=== PATIENT | female | born 1960 | race American Indian/Alaskan Native ===

== ENCOUNTER 2017-09-20 22:42 | Inpatient (IN) | payer MEDICARE ==
[2017-09-20 22:42] VITALS: BMI 22.4
--- NOTE | 2017-09-21 00:13 | C.PDOC ---
History Of Present Illness 57 y/o female presents to the emergency department requesting detox from opiates. Denies any suicidal or homicidal ideation. Offers no physical complaints. Patient receives dialysis on . Last dialysis was yesterday. pt states no cp, sob. pt does not make urine baseline. pt unknown cd4 viral load , non complaint hiv meds. Time Seen by Provider: 09/20/17 22:56 Chief Complaint (Nursing): Substance Abuse History Per: Patient History/Exam Limitations: no limitations Onset/Duration Of Symptoms: Hrs Current Symptoms Are (Timing): Still Present Past Medical History Reviewed: Historical Data, Nursing Documentation, Vital Signs Vital Signs: Last Vital Signs Temp 98.8 F 09/23/17 06:38 Pulse 70 09/23/17 06:38 Resp 18 09/23/17 06:38 BP 106/67 09/23/17 06:38 Pulse Ox 99 09/23/17 06:38 - Medical History PMH: Anemia, Anxiety, CAD, Depression, Fractures (r ft fx), Gall Bladder Disease , HIV, HTN, Hypercholesterolemia, Hyperlipidemia, Hyperthyroidism ( Hyperparathyroidism, pt not sure), Hypothyroidism, Migraine, Pancreatitis, Pneumonia, End Stage Renal Disease, Chronic Kidney Disease, Sexually Transmitted Disease (HIV/AIDS) Denies: Alzheimer's Disease, Arthritis, Asthma, Bronchitis, Cardia Arrhythmia , CHF, COPD, Dementia, Emphysema, Kidney Stones, Mitral Valve Prolapse, Parkinson's Disease, Peripheral Edema, Seizures, Sickle Cell Disease, Sleep Apnea, TIA Surgical History: Appendectomy, Cholecystectomy, Coronary Stent Denies: Pacemaker - [facility] Procedures (09/01/17) APPLICATION OF SPLINT (01/09/14) CONTRAST ARTERIOGRAM NEC (12/13/13) CORONAR ARTERIOGR-2 CATH (09/05/13) CORONARY ARTERY STENT INSERTION [id number] (09/05/13) DILATION OF 1 COR ART WITH DRUG-ELUT INTRALUM, PERC APPROACH (08/21/15) DILATION OF CORONARY ARTERY, ONE ARTERY, PERC APPROACH (04/21/16) ESOPHAGOGASTRODUODENOSCOPY [EGD] W/CLOSED BIOPSY (06/20/13) EXCISION OF ESOPHAGUS, ENDO, DIAGN (08/21/15) EXCISION OF MIDDLE ESOPHAGUS, ENDO, DIAGN (09/01/17) GAIT TRAINING/AMBULAT TREATMENT USING ASSIST EQUIPMENT (07/22/16) GAIT TRAINING/FUNCTIONAL AMBULATION TREATMENT (06/28/16) HEMODIALYSIS (02/28/15) HOME MANAGEMENT TREATMENT (06/28/16) HOME MANAGEMENT TREATMENT USING ASSIST EQUIPMENT (07/22/16) INFLUENZA VACCINATION (04/28/14) INJECT/INFUSE NEC (04/10/14) INSERT INFUSION DEV IN R INT JUGULAR VEIN, PERC (07/16/16) INSERTION OF TWO VASCULAR STENTS (09/05/13) INTRODUCE OF OTH THERAP SUBST INTO RESP TRACT, VIA OPENING (04/29/16) INTRODUCE OF OXAZOLIDINONES INTO PERIPH VEIN, PERC APPROACH (04/29/16) LEFT HEART CARDIAC CATH (09/05/13) LT HEART ANGIOCARDIOGRAM (09/05/13) MEASURE OF CARDIAC SAMPL & PRESSURE, L HEART, PERC APPROACH (04/21/16) NEBULIZER THERAPY (02/28/15) OTHER ENDOSCOPY OF SM INTEST (11/12/11) OTHER SKIN & SUBQ I D (04/04/13) PACKED CELL TRANSFUSION (05/12/13) PERCUTAN NEEDLE BIOPSY OF KIDNEY (01/25/13) PERCUTANEOUS TRANSLUMINAL CORONARY ANGIOPLASTY [PTCA] (09/05/13) PERFORMANCE OF URINARY FILTRATION, MULTIPLE (07/22/16) PLAIN RADIOGRAPHY OF LEFT HEART USING LOW OSMOLAR CONTRAST (04/21/16) PLAIN RADIOGRAPHY OF MULT COR ART USING L OSM CONTRAST (04/21/16) PROCEDURE ON TWO VESSELS (09/05/13) TRANSFER TRAINING TREATMENT USING ASSIST EQUIPMENT (07/22/16) TRANSFUSE NONAUT RED BLOOD CELLS IN PERIPH VEIN, PERC (09/01/17) ULTRASONOGRAPHY OF RIGHT JUGULAR VEINS, GUIDANCE (07/16/16) VACCINATION NEC (11/12/11) VENOUS PUNCTURE NEC (11/10/11) Family History: States: No Known Family Hx - Social History Hx Tobacco Use: No Hx Alcohol Use: No Hx Substance Use: Yes - Immunization History Hx Tetanus Toxoid Vaccination: No Hx Influenza Vaccination: Yes Hx Pneumococcal Vaccination: No Review Of Systems Respiratory: Negative for: Shortness of Breath Gastrointestinal: Negative for: Nausea, Vomiting Psych: Positive for: Other (substance abuse). Negative for: Suicidal ideation Physical Exam - Physical Exam Appears: Non-toxic, No Acute Distress Skin: Normal Color, Warm, Dry Head: Atraumatic, Normacephalic Eye(s): bilateral: Normal Inspection, PERRL, EOMI Nose: Normal Oral Mucosa: Moist Chest: Symmetrical Cardiovascular: Rhythm Regular, No Murmur Respiratory: Normal Breath Sounds, No Accessory Muscle Use Gastrointestinal/Abdominal: Soft, No Tenderness, No Distention Extremity: Bilateral: Atraumatic, Normal Color And Temperature, Normal ROM Neurological/Psych: Oriented x3, Normal Speech Gait: Steady ED Course And Treatment - Laboratory Results Result Diagrams: 09/21/17 01:20 09/21/17 01:20 O2 Sat by Pulse Oximetry: 97 (RA) Pulse Ox Interpretation: Normal Medical Decision Making Medical Decision Making: Time: 23:04 Initial Plan: Alcohol serum Urine drug screen CMP CBC Urinalysis Will discuss w/ crisis Labs reviewed. H/H is at pts baseline. medically clear/ no cardiopulm complaints. FINDINGS: Lungs: Mild parabronchial cuffing, which can be seen with bronchitis, reactive airway disease or viral pneumonitis versus mild failure. Trace haziness of the lung bases likely due to overlying soft tissues. Pleural space: Unremarkable. No pneumothorax. Heart: Mild enlargement of cardiac silhouette. Mediastinum: Unremarkable. Bones/joints: Unremarkable. IMPRESSION: Mild parabronchial cuffing, which can be seen with bronchitis, reactive airway disease or viral pneumonitis versus mild failure. pt does not make urine, unable to obtain drug screen ua. case discussed with cordell. pt will need arrangements for hd, and will need nephrology/im consult for hiv medication management. no active infection. pt well appearing, lungs cta. abd soft, observed in nad, on phone. Disposition - Disposition Disposition: HOSPITALIZED Disposition Time: 05:40 Condition: STABLE - Clinical Impression Clinical Impression: Opiate addiction - Scribe Statement The provider has reviewed the documentation as recorded by the Scribe (Taisha Evangelista) Provider Attestation: All medical record entries made by the Scribe were at my direction and personally dictated by me. I have reviewed the chart and agree that the record accurately reflects my personal performance of the history, physical exam, medical decision making, and the department course for this patient. I have also personally directed, reviewed, and agree with the discharge instructions and disposition. Decision To Admit - Pt Status Changed To: Hospital Disposition Of: Inpatient - Admit Certification Admit to Inpatient:: After my assessment, the patient will require hospitalization for at least two midnights. This is because of the severity of symptoms shown, intensity of services needed, and/or the medical risk in this patient being treated as an outpatient. - InPatient: Physician Admission Certification: I certify that this patient requires 2 or more midnights of care for the following reason:: needs detox - . Bed Request Type: Detox Admitting Physician: Dia Livingston Patient Diagnosis: Opiate addiction
[2017-09-21 01:24] LABS: BASO % 0.8 % (0.0-2.0); EOS % 0.7 % (0.0-4.0); HEMOGLOBIN 8.6 g/dL (11.0-16.0); LYMPH # 1.3 K/uL (1.0-4.3); LYMPH % 22.7 % (20.0-40.0); MEAN CELL VOLUME 102.8 fL (81.0-99.0); MEAN CORPUSCULAR HEMOGLOBIN 34.8 pg (27.0-31.0); MEAN CORPUSCULAR HGB CONC 33.8 g/dL (33.0-37.0); MEAN PLATELET VOLUME 9.1 fL (7.2-11.7); MONO # 0.7 K/uL (0.0-0.8); MONO % 11.9 % (0.0-10.0); NEUT # 3.7 K/uL (1.8-7.0); NEUT % 63.9 % (50.0-75.0); NRBC % 0.6 % (0.0-2.0); RBC 2.46 Mil/uL (3.80-5.20); WHITE BLOOD COUNT 5.8 K/uL (4.8-10.8)
[2017-09-21 01:39] LABS: ALB/GLOB RATIO 0.8 (1.0-2.1); ALBUMIN 4.2 g/dL (3.5-5.0); ALT/SGPT 33 U/L (9-52); AST/SGOT 40 U/L (14-36); BLOOD UREA NITROGEN 33 mg/dL (7-17); CALCIUM 8.8 mg/dl (8.6-10.4); GFR AFRICAN-AMERICAN 5; GFR NON-AFRICAN AMERICAN 4
--- NOTE | 2017-09-21 04:54 | RAD ---
EXAM: XR Chest, 2 Views CLINICAL HISTORY: 57 years old, female; Signs and symptoms; Cough; Symptoms not specified; Additional info: Psych TECHNIQUE: Frontal and lateral views of the chest. COMPARISON: No relevant prior studies available. FINDINGS: Lungs: Mild parabronchial cuffing, which can be seen with bronchitis, reactive airway disease or viral pneumonitis versus mild failure. Trace haziness of the lung bases likely due to overlying soft tissues. Pleural space: Unremarkable. No pneumothorax. Heart: Mild enlargement of cardiac silhouette. Mediastinum: Unremarkable. Bones/joints: Unremarkable. IMPRESSION: Mild parabronchial cuffing, which can be seen with bronchitis, reactive airway disease or viral pneumonitis versus mild failure.
--- NOTE | 2017-09-21 08:17 | PCM.BM ---
<Onelia Aguilar - Last Filed: 09/21/17 08:15> Treatment Plan Problems - Problems identified on initial assessmt Potential for opioid withdrawal Date Initiated: 09/21/17 Assessment reference: NA Status: Active Treatment assets and liabiliti Patient Assests: adapts well, cooperative, insightful Patient Liabilities: live alone, substance abuse, medical problems - Milieu Protocol Maintain good personal hygiene: daily Encourage regular showers, daily Remind patient to perform daily oral care, daily Assist patient to perform ADL's, every shift Encourage regular showers, every shift Remind patient to perform daily oral care, every shift Assist patient to perform ADL's Maintain personal safety: daily Educate patient to report safety concerns to staff, daily Monitor environment for contraband/sharps, every shift Educate patient to report safety concerns to staff, every shift Monitor environment for contraband/sharps Medication safety: Monitor for expected outcome, potential side effects: daily, every shift, Assess barriers to learning: daily, every shift, Assess readiness for medication education: daily, every shift <Vaishnavi Hutchinson - Last Filed: 09/21/17 16:03> Family Contact Family involvement: Patient does not wish Family/SO involvement - Goals for Treatment Patient goals for treatment: Complete detox and transtion to o/p at [facility]. Discharge/Continuing Care - Education Needs Education Needs: Patient Medication, Patient Diagnosis/Disease Process, Patient Coping Skills, Patient Anger Management skills, Patient Placement options, Patient Community resources - Discharge Discharge Criteria: No longer exhibiting s/s of withdrawal, Reduction of target symptoms Discharge to:: Home - Treatment Team Participation Patient/Family/SO Statement: 09/21/17 16:04 "I wanna go to outpatient near my house..." Discussed with Family/SO: No Was Patient/Family/SO present at Treatment Team Meeting: Yes <Marge Forman - Last Filed: 09/22/17 22:17> - Diagnosis (1) Opiate addiction Status: Acute Interventions: 09/22/17 22:17 * Assess 7x/week regarding severity of withdrawal * Educate regarding risks, benefits, side effects and alternatives of medications * Use Motivational Interviewing for abstinence * Use CBT for relapse prevention * Medication management for withdrawal symptoms * Encourage medication assisted treatment *
[2017-09-21] MEDS ORDERED: Levothyroxine 25 MCG TAB PO SCH (10:45)
[2017-09-21] MEDS: Multiple Vitamins Tab PO SCH (11:35)
--- NOTE | 2017-09-21 13:51 | CP.PCM.CON ---
History of Present Illness - History of Present Illness History of Present Illness: 57 y/o female presents to the emergency department requesting detox from opiates. Denies any suicidal or homicidal ideation. Offers no physical complaints. Patient receives dialysis on . Last dialysis was yesterday. pt states no cp, sob. pt does not make urine baseline. pt unknown cd4 viral load , non complaint hiv meds. PMH: ESRD HIV POSITIVE HTN CAD ISCHEMIC CARDIOMYOPATHY PSH: AV [facility] CATH INSERTION/REMOVAL Review of Systems - Review of Systems All systems: reviewed and no additional remarkable complaints except - Constitutional Constitutional: Lethargy, Weakness - EENT Eyes: absent: As Per HPI, Blind Spots, Blurred Vision, Change in Vision, Decreased Night Vision, Diplopia, Discharge, Dry Eye, Exophthalmos, Floaters, Irritation, Itchy Eyes, Loss of Peripheral Vision, Pain, Photophobia, Requires Corrective Lenses, Sees Flashes, Spots in Vision, Tunnel Vision, Other Visual Disturbances, Loss of Vision, Other Ears: absent: As Per HPI, Decreased Hearing, Ear Discharge, Ear Pain, Tinnitus, Abnormal Hearing, Disequilibrium, Dizziness, Other Nose/Mouth/Throat: absent: As Per HPI, Epistaxis, Nasal Congestion, Nasal Discharge, Nasal Obstruction, Nasal Trauma, Nose Pain, Post Nasal Drip, Sinus Pain, Sinus Pressure, Bleeding Gums, Change in Voice, Dental Pain, Dry Mouth, Dysphagia, Halitosis, Hoarsness, Lip Swelling, Mouth Lesions, Mouth Pain, Odynophagia, Sore Throat, Throat Swelling, Tongue Swelling, Facial Pain, Neck Pain, Neck Mass, Other - Cardiovascular Cardiovascular: Dyspnea on Exertion - Respiratory Respiratory: absent: As Per HPI, Cough, Dyspnea, Hemoptysis, Dyspnea on Exertion , Wheezing, Snoring, Stridor, Pain on Inspiration, Chest Congestion, Excessive Mucous Production, Change in Mucous Color, Pain with Coughing, Other - Gastrointestinal Gastrointestinal: absent: As Per HPI, Abdominal Pain, Belching, Bloating, Change in Bowel Habits, Change in Stool Character, Coffee Ground Emesis, Constipation, Cramping, Diarrhea, Dyspepsia, Dysphagia, Early Satiety, Excessive Flatus, Fecal Incontinence, Heartburn, Hematemesis, Hematochezia, Loose Stools, Melena, Nausea, Odynophagia, Temesmus, Vomiting, Other - Genitourinary Genitourinary: As Per HPI - Musculoskeletal Musculoskeletal: Muscle Cramps, Myalgias - Integumentary Integumentary: absent: As Per HPI, Acne, Alopecia, Bleeding Lesions, Change in Hair, Change in Nails, Change in Pigmentation, Changing Lesions, Dry Skin, Erythema, Furuncle, Hirsutism, Lesions, New Lesions, Non-Healing Lesions, Photosensitivity, Pruritus, Rash, Skin Pain, Skin Ulcer, Sores, Striae, Swelling , Unusual Bruising, Wounds, Jaundice, Other Past Patient History - Infectious Disease Hx of Infectious Diseases: None - Tetanus Immunizations Tetanus Immunization: Unknown - Past Medical History & Family History Past Medical History?: Yes - Past Social History Smoking Status: Former Smoker - CARDIAC Hx Cardia Arrhythmia: No Hx Congestive Heart Failure: No Hx Hypercholesterolemia: Yes Hx Hypertension: Yes Hx Mitral Valve Prolapse: No Hx Pacemaker: No Hx Peripheral Edema: No Hx Peripheral Vascular Disease: No - PULMONARY Hx Asthma: No Hx Bronchitis: No Hx Chronic Obstructive Pulmonary Disease (COPD): No Hx Emphysema: No Hx Pneumonia: Yes Hx Sleep Apnea: No - NEUROLOGICAL Hx Alzheimer's Disease: No Hx Dementia: No Hx Migraine: Yes Hx Parkinson's Disease: No Hx Seizures: No Hx Transient Ischemic Attacks (TIA): No - HEENT Hx HEENT Problems: No - RENAL Hx Chronic Kidney Disease: Yes Hx Kidney Stones: No - ENDOCRINE/METABOLIC Hx Hyperthyroidism: Yes (Hyperparathyroidism, pt not sure) Hx Hypothyroidism: Yes - HEMATOLOGICAL/ONCOLOGICAL Hx Anemia: Yes Hx Human Immunodeficiency Virus (HIV): Yes Hx Sickle Cell Disease: No - INTEGUMENTARY Hx Dermatological Problems: Yes (generalized body itch on and off) - MUSCULOSKELETAL/RHEUMATOLOGICAL Hx Arthritis: No Hx Falls: No Hx Fractures: Yes (r ft fx) - GASTROINTESTINAL Hx Gall Bladder Disease: Yes Hx Pancreatitis: Yes - GENITOURINARY/GYNECOLOGICAL Hx Sexually Transmitted Disorders: Yes (HIV/AIDS) - PSYCHIATRIC Hx Anxiety: Yes Hx Depression: Yes Hx Substance Use: Yes - SURGICAL HISTORY Hx Appendectomy: Yes Hx Cholecystectomy: Yes Hx Coronary Stent: Yes - ANESTHESIA Hx Anesthesia: Yes Hx Anesthesia Reactions: No Hx Malignant Hyperthermia: No Meds Allergies/Adverse Reactions: Allergies Allergy/AdvReac Type Severity Reaction Status Date / Time AYANA Inhibitors Allergy SWELLING Verified 09/20/17 22:45 - Medications Medications: Current Medications Aspirin (Ecotrin) 81 mg PO DAILY RE[facility] Last Admin: 09/21/17 11:35 Dose: 81 mg [facility] Clopidogrel Bisulfate (Plavix) 75 mg PO DAILY [facility] Last Admin: 09/21/17 11:35 Dose: 75 mg Famotidine (Pepcid) 20 mg PO BID [facility] Hydroxyzine HCl (Atarax) 25 mg PO Q6H PRN PRN Reason: Anxiety Levothyroxine Sodium (Synthroid) 25 mcg PO DAILY [facility] Last Admin: 09/21/17 11:34 Dose: 25 mcg Metoclopramide HCl (Reglan) 10 mg PO DAILY PRN PRN Reason: Nausea/Vomiting Metoprolol Tartrate (Lopressor) 50 mg PO BID [facility] Last Admin: 09/21/17 11:35 Dose: 50 mg Multivitamins (Hexavitamin) 1 tab PO DAILY [facility] Last Admin: 09/21/17 11:35 Dose: 1 tab Trazodone HCl (Desyrel) 50 mg PO [facility] Trimethoprim/Sulfamethoxazole (Bactrim Ds Tab) tab [facility] PRN Reason: Protocol Physical Exam - Constitutional Appears: Non-toxic, No Acute Distress - Head Exam Head Exam: ATRAUMATIC, NORMAL INSPECTION - Eye Exam Eye Exam: EOMI, Normal appearance - Neck Exam Neck exam: Positive for: Normal Inspection. Negative for: Tenderness - Respiratory Exam Respiratory Exam: Clear to Auscultation Bilateral, NORMAL BREATHING PATTERN - Cardiovascular Exam Cardiovascular Exam: REGULAR RHYTHM, +S1 - GI/Abdominal Exam GI & Abdominal Exam: Soft. absent: Tenderness - Extremities Exam Extremities exam: Positive for: normal inspection, tenderness - Neurological Exam Neurological exam: Alert, CN II-XII Intact - Skin Skin Exam: Dry, Warm Results - Vital Signs Recent Vital Signs: Last Vital Signs Temp 98.5 F 09/21/17 12:38 Pulse 80 09/21/17 12:38 Resp 18 09/21/17 12:38 BP 116/73 09/21/17 12:38 Pulse Ox 96 09/21/17 12:38 - Labs Result Diagrams: 09/21/17 01:20 09/21/17 01:20 Labs: Laboratory Results - last 24 hr 09/21/17 09/21/17 01:20 01:20 WBC 5.8 RBC 2.46 L Hgb 8.6 L Hct 25.3 L MCV 102.8 H MCH 34.8 H MCHC 33.8 RDW 16.0 H Plt Count 179 MPV 9.1 Neut % (Auto) 63.9 Lymph % (Auto) 22.7 [place] % (Auto) 11.9 H Eos % (Auto) 0.7 Baso % (Auto) 0.8 Neut # (Auto) 3.7 Lymph # (Auto) 1.3 [place] # (Auto) 0.7 Eos # (Auto) 0.0 Baso # (Auto) 0.0 Sodium 142 Potassium 4.1 Chloride 95 L Carbon Dioxide 28 Anion Gap 23 H BUN 33 H Creatinine 9.2 H* D Est GFR ( Amer) 5 Est GFR (Non-Af Amer) 4 Random Glucose 137 H Calcium 8.8 Total Bilirubin 0.7 AST 40 H ALT 33 Alkaline Phosphatase 84 Total Protein 9.2 H Albumin 4.2 Globulin 5.0 H Albumin/Globulin Ratio 0.8 L Alcohol, Quantitative < 10 Assessment & Plan (1) ESRD (end stage renal disease) Status: Acute (2) CAD (coronary artery disease) Status: Acute (3) Opiate addiction Status: Acute - Assessment and Plan (Free Text) Plan: DETOX PLANS DIALYSIS TTS
[2017-09-21] MEDS ORDERED: Tmp-Smz 800 mg-160 mg DS Tab PO ONE (15:00)
--- NOTE | 2017-09-22 00:57 | PCM.PSYCH ---
Initial Psychiatric Evaluation - Initial Psychiatric Evaluation Type of Admission: Voluntary Legal Status: Capacity Chief Complaint (in patient's own words): I need detox Patient's Reaction to Hospitalization: Voluntary History of Present Illness and Precipitating Events: Patient is a 57 year old female with history of ESRD on hemodialysis every thursday, , and thursday, lives with her grandchildren and son, hx of percocet abuse (8/day), last use was thursday or thursday, patient been using heroin for years. Started using marijuana 4 months ago. Patient is a nonsmoker. She admits to feeling agitated at this time. Also experiencing some nausea. Denies any thoughts of suicide or homicide. Denies any hallucination. Past psych hx: Denies Medical hx: ESRD, HTN Family psych hx: Unknown Current Medications: Active Medications Generic Name Dose Route Start Last Admin Trade Name Freq PRN Reason Stop Dose Admin Acetaminophen 325 mg 09/21/17 14:45 09/21/17 15:03 Tylenol 325mg Tab PO 325 mg Q4 PRN Administration moderate pain 4-7 Aspirin 81 mg 09/21/17 10:37 09/21/17 11:35 Ecotrin PO 81 mg DAILY REILLY Administration Calcium Acetate 667 mg 09/21/17 17:00 09/21/17 19:33 Phoslo PO Not Given BIDCC [facility] Clopidogrel Bisulfate 75 mg 09/21/17 11:00 09/21/17 11:35 Plavix PO 75 mg DAILY RE[facility] Administration Famotidine 20 mg 09/21/17 18:00 09/21/17 19:33 Pepcid PO Not Given BID [facility] Hydroxyzine HCl 25 mg 09/21/17 10:44 09/21/17 21:37 Atarax PO 25 mg Q6H PRN Administration Anxiety Levothyroxine Sodium 25 mcg 09/22/17 10:00 Synthroid PO DAILY [facility] Methadone HCl 5 mg 09/21/17 23:10 Methadone PO DAILY PRN breakthrough opioid wdw sxs Methadone HCl 0 mg 09/22/17 10:00 Methadone PO 09/26/17 09:59 Q24H RE[facility] Taper Metoclopramide HCl 10 mg 09/21/17 10:49 09/21/17 16:33 Reglan PO 10 mg DAILY PRN Administration Nausea/Vomiting Metoprolol Tartrate 50 mg 09/21/17 10:30 09/21/17 19:33 Lopressor PO Not Given BID [facility] Multivitamins 1 tab 09/21/17 11:00 09/21/17 11:35 Hexavitamin PO 1 tab DAILY [facility] Administration Trazodone HCl 50 mg 09/21/17 22:00 09/21/17 21:37 Desyrel PO 50 mg HS [facility] Administration Trimethoprim/Sulfamethoxazole 400 tab 09/22/17 18:00 Bactrim Ss Tab PO TTS@1800 [facility] Protocol Past Psychiatric History - Past Psychiatric History Previous Treatment History: None Pertinent Medical Hx (Current Medical&Sleep Prob, Allergies): Allergies Allergy/AdvReac Type Severity Reaction Status Date / Time AYANA Inhibitors Allergy SWELLING Verified 09/20/17 22:45 Aspirin [Ecotrin] 81 mg PO DAILY #30 tabec 09/04/17 Atovaquone [Mepron] 750 mg PO BID #60 packet 09/04/17 Calcium Acetate [Phoslo] 667 mg PO TID #60 capsule 09/04/17 Clopidogrel [Plavix] 75 mg PO DAILY #90 tab 09/04/17 Clotrimazole [Mycelex Ines] 10 mg MT 5XD #60 theresa 09/04/17 Darunavir [Prezista] 800 mg PO DAILY #90 tab 09/04/17 Dolutegravir Sodium [Tivicay] 50 mg PO DAILY #30 tab 09/04/17 Folic Acid 1 mg PO DAILY #90 tab 09/04/17 Levothyroxine [Synthroid] 25 mcg PO DAILY #90 tab 09/04/17 Metoclopramide [Reglan] 10 mg PO DAILY PRN #30 tab 09/04/17 Metoprolol Tartrate [Lopressor] 50 mg PO BID #60 tab 09/04/17 Pantoprazole [Protonix EC Tab] 40 mg PO BID #30 ect 09/04/17 Rosuvastatin Calcium [Crestor] 20 mg PO HS #30 tab 09/04/17 Calcium Acetate 667 mg PO DAILY 09/21/17 Levocetirizine Dihydrochloride [Xyzal] 5 mg PO PRN PRN 09/21/17 [id number] Ethyl Esters 1 GM [Lovaza] 1 gm PO BID 09/21/17 Sulfamethoxazole/Trimethoprim [Bactrim Ds Tablet] 1 each PO MWF 09/21/17 Review of Systems - Review of Systems All systems: reviewed and no additional remarkable complaints except - Gastrointestinal Gastrointestinal: Nausea - Psychiatric Psychiatric: Abnormal Sleep Pattern, Anxiety, Difficulty Concentrating, Mood Swings. absent: Auditory Hallucinations, Hallucinations, Homicidal Ideation, Suicidal Ideation, Visual Hallucinations Mental Status Examination - Personal Presentation Personal Presentation: Looks stated age - Affect Affect: Broad - Motor Activity Motor Activity: Calm - Reliability in Providing Information Reliability in Providing Information: Good - Speech Speech: Organized - Mood Mood: Neutral - Formal Thought Process Formal Thought Process: No Impairment - Cognitive Functions Orientation: Person, Place, Situation, Time Sensorium: Alert Attention/Concentration: Attentive Abstract Thinking: [place] Estimate of Intelligence: Average Judgement: Imparied, as evidence by: Poor judgement Memory: Recent intact, as evidence by: Ability to recall events of the day, Remote intact, as evidenced by: Abilit to recall sig. life events - Risk Risk: Withdrawal, Diminished functioning - Strength & Assets Inventory Strength & Assets Inventory: Family support, Cooperative - Limitations Limitations: Living alone DSM 5 DX - DSM 5 DSM 5 Diagnosis: Opioid use disorder Opioid withdrawal Cannabis use disorder - Recommended/Plan of Treatment Treatment Recommendations and Plan of Treatment: Methadone detox but low dose due to hemodialysis and not severe sxs Gabapentin for augmentation As needed medications All risks, benefits and alternatives of the meds discussed,and the pt agreed and understood. Attend groups and activities Supportive therapy and psychoeducation [place] for abstinence CBT for relapse prevention Encourage MAT Refer to rehab or IOP, and self-help groups 34 min Projected ELOS: 5 days Prognosis: Good with rehab Discharge Plan and Discharge Criteria: Rehab and MAT - Smoking Cessation Smoking Cessation Initiated: No Reason for not providing: Nonsmoker
[2017-09-22] MEDS: Levothyroxine 25 MCG TAB PO SCH (10:20)
[2017-09-22] MEDS: Multiple Vitamins Tab PO SCH (10:21)
[2017-09-22] MEDS ORDERED: DiphenhydrAMINE 50 mg/ml Inj IVP ONE (11:45)
[2017-09-22] MEDS ORDERED: DiphenhydrAMINE 50 mg/ml Inj IVP STA (12:09)
--- NOTE | 2017-09-22 12:09 | CP.PCM.PN ---
Subjective - Date & Time of Evaluation Date of Evaluation: 09/22/17 Time of Evaluation: 12:06 - Subjective Subjective: seen and examined pt requesting iv benadryl 50 mg iv x 2 during dialysis. Denies any cp/sob/dizziness/palpitations/nausea/vomiting/diarrhea/fevers/chills/ rash Called pt's pump [facility] at [place]. She received iv benadryl 25 mg x 2 during each dialysis Objective - Vital Signs/Intake and Output Vital Signs (last 24 hours): Temp Pulse Resp BP Pulse Ox 98.2 F 73 16 130/78 98 09/22/17 10:20 09/22/17 10:15 09/22/17 10:20 09/22/17 10:35 09/22/17 10:20 - Medications Medications: Current Medications Acetaminophen (Tylenol 325mg Tab) 325 mg PO Q4 PRN PRN Reason: moderate pain 4-7 Last Admin: 09/21/17 15:03 Dose: 325 mg Aspirin (Ecotrin) 81 mg PO DAILY [facility] Last Admin: 09/22/17 10:21 Dose: Not Given Calcium Acetate (Phoslo) 667 mg PO BIDCC [facility] Last Admin: 09/22/17 10:21 Dose: Not Given Clopidogrel Bisulfate (Plavix) 75 mg PO DAILY [facility] Last Admin: 09/22/17 10:21 Dose: Not Given Epoetin Brandon (Procrit) 10,000 unit IV TTS [facility] Stop: 09/26/17 10:01 Famotidine (Pepcid) 20 mg PO BID [facility] Last Admin: 09/22/17 10:21 Dose: Not Given Hydroxyzine HCl (Atarax) 25 mg PO Q6H PRN PRN Reason: Anxiety Last Admin: 09/21/17 21:37 Dose: 25 mg Levothyroxine Sodium (Synthroid) 25 mcg PO DAILY [facility] Last Admin: 09/22/17 10:20 Dose: Not Given Methadone HCl (Methadone) 5 mg PO DAILY PRN PRN Reason: breakthrough opioid wdw sxs Methadone HCl (Methadone) 10 mg PO Q24H [facility] PRN Reason: Taper Stop: 09/26/17 09:59 Last Admin: 09/22/17 10:21 Dose: Not Given Metoclopramide HCl (Reglan) 10 mg PO DAILY PRN PRN Reason: Nausea/Vomiting Last Admin: 09/21/17 16:33 Dose: 10 mg Metoprolol Tartrate (Lopressor) 50 mg PO BID [facility] Last Admin: 09/22/17 10:21 Dose: Not Given Multivitamins (Hexavitamin) 1 tab PO DAILY [facility] Last Admin: 09/22/17 10:21 Dose: Not Given Trazodone HCl (Desyrel) 50 mg PO HS [facility] Last Admin: 09/21/17 21:37 Dose: 50 mg Trimethoprim/Sulfamethoxazole (Bactrim Ss Tab) 400 tab PO TTS@1800 [facility] PRN Reason: Protocol - Labs Labs: 09/21/17 01:20 09/21/17 01:20 - Constitutional Appears: Non-toxic, No Acute Distress - Head Exam Head Exam: NORMAL INSPECTION - Eye Exam Eye Exam: Normal appearance Pupil Exam: PERRL - ENT Exam ENT Exam: Mucous Membranes Moist, Normal Exam - Neck Exam Neck Exam: Normal Inspection - Respiratory Exam Respiratory Exam: Clear to Ausculation Bilateral, NORMAL BREATHING PATTERN - Cardiovascular Exam Cardiovascular Exam: REGULAR RHYTHM, RRR - GI/Abdominal Exam GI & Abdominal Exam: Soft, Normal Bowel Sounds - Extremities Exam Extremities Exam: Full ROM, Normal Inspection - Neurological Exam Neurological Exam: Alert, Awake, Oriented x3 - Psychiatric Exam Psychiatric exam: Normal Affect, Normal Mood - Skin Skin Exam: Intact, Warm Assessment and Plan (1) CAD (coronary artery disease) Status: Acute (2) ESRD (end stage renal disease) Status: Acute (3) Opiate addiction Status: Acute - Assessment and Plan (Free Text) Assessment: maintain hd mwf bp acceptable electrolytes acceptable
[2017-09-22] MEDS: Epoetin Alfa 10,000 unit/ml Dialysis IV SCH (13:22)
[2017-09-22] MEDS ORDERED: Tmp-Smz 400 mg-80 mg SS Tab PO SCH (18:00)
[2017-09-22] MEDS: Tmp-Smz 400 mg-80 mg SS Tab PO SCH ×2 (18:34→18:38)
[2017-09-23] MEDS: Multiple Vitamins Tab PO SCH (10:09)
[2017-09-23] MEDS: Levothyroxine 25 MCG TAB PO SCH (10:10)
--- NOTE | 2017-09-23 11:40 | PCM.PYCHPN ---
Psychiatric Progress Note - Psychiatric Progress Note Patient seen today, length of contact: 17 min Patient Chief Complaint: I am better" Problems Identified/Issues Discussed: The pt is seen, chart reviewed, case discussed with staff. The pt is compliant with medications and reports no side-effects. Symptoms are improving but needs more time to stabilize. After care discussed, support and psychoeducation given. Medication Change: Yes (detox changes daily) Medical Record Reviewed: Yes Mental Status Examination - Cognitive Function Orientation: Person, Place, Situation, Time Memory: Intact Attention: WNL Concentration: Poor Association: WNL Fund of Knowledge: WNL - Mood Mood: Neutral - Affect Affect: Broad - Speech Speech: Appropriate - Formal Thought Process Formal Thought Process: No Impairment - Suicidal Ideation Suicidal Ideation: No - Homicidal Ideation Homicidal Ideation: No Goal/Treatment Plan - Goal/Treatment Plan Need for Continued Stay: Discharge may exacerbated symptoms, Severe functional impairment Progress Toward Problem(s) and Goals/Treatment Plan: Methadone detox but low dose due to hemodialysis and not severe sxs As needed medications All risks, benefits and alternatives of the meds discussed,and the pt agreed and understood. Attend groups and activities Supportive therapy and psychoeducation [place] for abstinence CBT for relapse prevention Encourage MAT Refer to rehab or IOP, and self-help groups
--- NOTE | 2017-09-23 12:51 | CP.PCM.PN ---
Subjective - Date & Time of Evaluation Date of Evaluation: 09/23/17 Time of Evaluation: 12:50 - Subjective Subjective: Stable dialysis 09/22 EPO added feels better no new complaint Objective - Vital Signs/Intake and Output Vital Signs (last 24 hours): Temp Pulse Resp BP Pulse Ox 98.5 F 79 20 109/66 99 09/23/17 10:00 09/23/17 10:00 09/23/17 10:00 09/23/17 10:00 09/23/17 10:00 - Medications Medications: Current Medications Acetaminophen (Tylenol 325mg Tab) 325 mg PO Q4 PRN PRN Reason: moderate pain 4-7 Last Admin: 09/21/17 15:03 Dose: 325 mg Aspirin (Ecotrin) 81 mg PO DAILY [facility] Last Admin: 09/23/17 10:09 Dose: 81 mg [facility] Last Admin: 09/23/17 10:03 Dose: Not Given Clopidogrel Bisulfate (Plavix) 75 mg PO DAILY [facility] Last Admin: 09/23/17 10:10 Dose: 75 mg Epoetin Brandon (Procrit) 10,000 unit IV TTS [facility] Stop: 09/26/17 10:01 Last Admin: 09/22/17 13:22 Dose: 10,000 unit Famotidine (Pepcid) 20 mg PO BID [facility] Last Admin: 09/23/17 10:09 Dose: 20 mg Hydroxyzine HCl (Atarax) 25 mg PO Q6H PRN PRN Reason: Anxiety Last Admin: 09/22/17 21:46 Dose: 25 mg Levothyroxine Sodium (Synthroid) 25 mcg PO DAILY [facility] Last Admin: 09/23/17 10:10 Dose: 25 mcg Methadone HCl (Methadone) 5 mg PO DAILY PRN PRN Reason: breakthrough opioid wdw sxs Methadone HCl (Methadone) 10 mg PO Q24H [facility] PRN Reason: Taper Stop: 09/26/17 09:59 Last Admin: 09/23/17 10:10 Dose: 10 mg Metoclopramide HCl (Reglan) 10 mg PO DAILY PRN PRN Reason: Nausea/Vomiting Last Admin: 09/21/17 16:33 Dose: 10 mg Metoprolol Tartrate (Lopressor) 50 mg PO BID [facility] Last Admin: 09/23/17 10:53 Dose: 50 mg Multivitamins (Hexavitamin) 1 tab PO DAILY [facility] Last Admin: 09/23/17 10:09 Dose: 1 tab Trazodone HCl (Desyrel) 50 mg PO HS [facility] Last Admin: 09/22/17 21:46 Dose: 50 mg Trimethoprim/Sulfamethoxazole (Bactrim Ss Tab) 1 tab PO TTS@1800 [facility] PRN Reason: Protocol Last Admin: 09/22/17 18:38 Dose: 1 tab - Labs Labs: 09/21/17 01:20 09/21/17 01:20 - Constitutional Appears: No Acute Distress, Chronically Ill - Head Exam Head Exam: ATRAUMATIC, NORMAL INSPECTION - Eye Exam Eye Exam: EOMI, Normal appearance - Neck Exam Neck Exam: Normal Inspection. absent: Tenderness - Respiratory Exam Respiratory Exam: Clear to Ausculation Bilateral, NORMAL BREATHING PATTERN - Cardiovascular Exam Cardiovascular Exam: REGULAR RHYTHM, +S1 - GI/Abdominal Exam GI & Abdominal Exam: Soft. absent: Tenderness - Extremities Exam Extremities Exam: Normal Inspection. absent: Tenderness - Neurological Exam Neurological Exam: Alert, CN II-XII Intact - Skin Skin Exam: Dry, Warm Assessment and Plan (1) ESRD (end stage renal disease) Status: Acute (2) CAD (coronary artery disease) Status: Acute (3) Opiate addiction Status: Acute - Assessment and Plan (Free Text) Plan: opiate detox dialysis TTS EPO added
[2017-09-23] MEDS ORDERED: Vitamins A & D Oint UD Foilpak TOP PRN (13:48)
[2017-09-24] MEDS: Multiple Vitamins Tab PO SCH (09:21)
[2017-09-24] MEDS: Levothyroxine 25 MCG TAB PO SCH (09:23)
--- NOTE | 2017-09-24 10:51 | CP.PCM.PN ---
Subjective - Date & Time of Evaluation Date of Evaluation: 09/24/17 Time of Evaluation: 10:49 - Subjective Subjective: Seen at dialysis- going well BP controlled Wants IV benadryl- will defer to psychiatry Objective - Vital Signs/Intake and Output Vital Signs (last 24 hours): Temp Pulse Resp BP Pulse Ox 98.7 F 69 18 104/65 97 09/24/17 05:37 09/24/17 05:37 09/24/17 05:37 09/24/17 05:37 09/24/17 05:37 - Medications Medications: Current Medications Acetaminophen (Tylenol 325mg Tab) 325 mg PO Q4 PRN PRN Reason: moderate pain 4-7 Last Admin: 09/21/17 15:03 Dose: 325 mg Aspirin (Ecotrin) 81 mg PO DAILY [facility] Last Admin: 09/24/17 09:22 Dose: 81 mg [facility] Last Admin: 09/24/17 08:39 Dose: 667 mg Clopidogrel Bisulfate (Plavix) 75 mg PO DAILY [facility] Last Admin: 09/24/17 09:23 Dose: 75 mg Epoetin Brandon (Procrit) 10,000 unit IV TTS [facility] Stop: 09/26/17 10:01 Last Admin: 09/22/17 13:22 Dose: 10,000 unit Famotidine (Pepcid) 20 mg PO BID [facility] Last Admin: 09/24/17 09:25 Dose: 20 mg Hydroxyzine HCl (Atarax) 25 mg PO Q6H PRN PRN Reason: Anxiety Last Admin: 09/23/17 18:38 Dose: 25 mg Levothyroxine Sodium (Synthroid) 25 mcg PO DAILY [facility] Last Admin: 09/24/17 09:23 Dose: 25 mcg Methadone HCl (Methadone) 5 mg PO DAILY PRN PRN Reason: breakthrough opioid wdw sxs Methadone HCl (Methadone) 5 mg PO Q24H [facility] PRN Reason: Taper Stop: 09/26/17 09:59 Last Admin: 09/24/17 09:23 Dose: 5 mg Metoclopramide HCl (Reglan) 10 mg PO DAILY PRN PRN Reason: Nausea/Vomiting Last Admin: 09/21/17 16:33 Dose: 10 mg Metoprolol Tartrate (Lopressor) 50 mg PO BID [facility] Last Admin: 09/24/17 09:58 Dose: Not Given Multivitamins (Hexavitamin) 1 tab PO DAILY [facility] Last Admin: 09/24/17 09:21 Dose: 1 tab Trazodone HCl (Desyrel) 50 mg PO HS [facility] Last Admin: 09/23/17 21:06 Dose: Not Given Trimethoprim/Sulfamethoxazole (Bactrim Ss Tab) 1 tab PO TTS@1800 [facility] PRN Reason: Protocol Last Admin: 09/22/17 18:38 Dose: 1 tab Vitamin A (Vitamin A & D Oint Ud Foilpak) 1 ea TOP BID PRN PRN Reason: Dry skin - Labs Labs: 09/21/17 01:20 09/21/17 01:20 - Constitutional Appears: No Acute Distress, Chronically Ill - Head Exam Head Exam: ATRAUMATIC, NORMAL INSPECTION - Eye Exam Eye Exam: EOMI, Normal appearance - Neck Exam Neck Exam: Normal Inspection. absent: Tenderness - Respiratory Exam Respiratory Exam: Clear to Ausculation Bilateral, NORMAL BREATHING PATTERN - Cardiovascular Exam Cardiovascular Exam: REGULAR RHYTHM, +S1 - GI/Abdominal Exam GI & Abdominal Exam: Soft. absent: Tenderness - Extremities Exam Extremities Exam: Normal Inspection. absent: Tenderness - Neurological Exam Neurological Exam: Alert, CN II-XII Intact - Skin Skin Exam: Dry, Warm Assessment and Plan (1) ESRD (end stage renal disease) Status: Acute (2) CAD (coronary artery disease) Status: Acute (3) Opiate addiction Status: Acute - Assessment and Plan (Free Text) Plan: Same dialysis TTS Same detox plans
[2017-09-24] MEDS ORDERED: DiphenhydrAMINE 50 mg/ml Inj IVP STA ×2 (10:52→11:01)
[2017-09-24] MEDS ORDERED: DiphenhydrAMINE 50 mg/ml Inj IVP ONE (11:15)
--- NOTE | 2017-09-24 11:24 | CP.PCM.PCO ---
Physician Communication Note - Physician Communication Note Physician Communication Note: Spoke to the nurse, she is getting only one dose of Benadryl 50 mg iv
[2017-09-24] MEDS: Epoetin Alfa 10,000 unit/ml Dialysis IV SCH (11:44)
--- NOTE | 2017-09-24 11:51 | PCM.PYCHPN ---
Psychiatric Progress Note - Psychiatric Progress Note Patient seen today, length of contact: 16 min Patient Chief Complaint: I am anxious" Problems Identified/Issues Discussed: The pt is seen, chart reviewed, case discussed with staff. Support given, CBT and PR used briefly No new symptoms reported, improving slowly and needs more time No SEs from medications, risks discussed. After care discussed Medication Change: Yes (detox changes daily) Medical Record Reviewed: Yes Mental Status Examination - Cognitive Function Orientation: Person, Place, Situation, Time Memory: Intact Attention: WNL Concentration: Poor Association: WNL Fund of Knowledge: WNL - Mood Mood: Neutral - Affect Affect: Broad - Speech Speech: Appropriate - Formal Thought Process Formal Thought Process: No Impairment - Suicidal Ideation Suicidal Ideation: No - Homicidal Ideation Homicidal Ideation: No Goal/Treatment Plan - Goal/Treatment Plan Need for Continued Stay: Discharge may exacerbated symptoms, Severe functional impairment Progress Toward Problem(s) and Goals/Treatment Plan: Methadone detox but low dose due to hemodialysis and not severe sxs As needed medications All risks, benefits and alternatives of the meds discussed,and the pt agreed and understood. Attend groups and activities Supportive therapy and psychoeducation PR for abstinence CBT for relapse prevention Encourage MAT Refer to rehab or IOP, and self-help groups Estimated Date of D/C: 09/25/17
[2017-09-24 14:26] VITALS: RESP 18
[2017-09-24] MEDS: Tmp-Smz 400 mg-80 mg SS Tab PO SCH (18:04)
--- NOTE | 2017-09-25 08:45 | PCM.PYCHDC ---
Mental Status Examination - Mental Status Examination Orientation: Person Discharge Summary - Discharge Note Reason for Hospitalization: Voluntary Consultations:: List each consultation separately and include: 1. Reason for request. 2. Findings. 3. Follow-up Summary of Hospital Course include:: 1. Description of specific treatment plan utilized for patients during their course of treatmen. 2. Summarize the time- course for resolution of acute symptoms and/or regressed behaviors. 3. Describe issues identified and worked on during hospitalization. 4. Describe medication utilized. 5. Describe medical problems identified and treated. 6. Reassessment of suicide risk Summary of Hospital Course: Patient is a 57 year old female with history of ESRD on hemodialysis every thursday, , and thursday, lives with her grandchildren and son, hx of percocet abuse (8/day), last use was thursday or thursday, patient been using heroin for years. Started using marijuana 4 months ago. Patient is a nonsmoker. She admits to feeling agitated at this time. Also experiencing some nausea. Denies any thoughts of suicide or homicide. Denies any hallucination. Past psych hx: Denies Medical hx: ESRD, HTN Family psych hx: Unknown [facility] - Diagnosis (1) Opiate addiction Current Visit: Yes Status: Acute - Final Diagnosis (DSM 5) Condition upon Discharge: STABLE Disposition: HOME/ ROUTINE Follow-up Treatment Plan: Methadone detox but low dose due to hemodialysis and not severe sxs As needed medications All risks, benefits and alternatives of the meds discussed,and the pt agreed and understood. Attend groups and activities Supportive therapy and psychoeducation [place] for abstinence CBT for relapse prevention Encourage MAT Refer to rehab or IOP, and self-help groups Prescriptions/Medication Reconciliation: hydrOXYzine HCl [Atarax] 25 mg PO BID PRN #30 tab PRN Reason: Anxiety Multivitamins [Hexavitamin] 1 tab PO DAILY #30 tab traZODone [Desyrel] 50 mg PO HS #30 tab
[2017-09-25] MEDS: Levothyroxine 25 MCG TAB PO SCH (09:59)
[2017-09-25] MEDS: Multiple Vitamins Tab PO SCH (10:00)
[2017-09-25 10:30] VITALS: BP 116/66; PULSE 69; TEMP 98.5; O2SAT 99
== END 2017-09-25 11:15 | disposition home or self-care (01) | DRG 895 ==
LOC: C.ER 22:42 → SUPCPDRO 22:42 → C.7D 09-21 03:50
PROVIDERS: ADMIT Psychiatry & Neurology Psychiatry; ATTEND Psychiatry & Neurology Psychiatry
PROC: HZ2ZZZZ Detoxification Services for Substance Abuse Treatment (ICD-10-PCS; principal; 2017-09-21)
PROC: HZ52ZZZ Individual Psychotherapy for Substance Abuse Treatment, Cognitive-Behavioral (ICD-10-PCS; 2017-09-21)
PROC: HZ42ZZZ Group Counseling for Substance Abuse Treatment, Cognitive-Behavioral (ICD-10-PCS; 2017-09-21)
PROC: HZ59ZZZ Individual Psychotherapy for Substance Abuse Treatment, Supportive (ICD-10-PCS; 2017-09-21)
PROC: HZ56ZZZ Individual Psychotherapy for Substance Abuse Treatment, Psychoeducation (ICD-10-PCS; 2017-09-21)
PROC: HZ46ZZZ Group Counseling for Substance Abuse Treatment, Psychoeducation (ICD-10-PCS; 2017-09-21)
PROC: 5A1D70Z Performance of Urinary Filtration, Intermittent, Less than 6 Hours Per Day (ICD-10-PCS; 2017-09-24)
DX: F11.23 Opioid dependence with withdrawal (principal); I13.2 Hypertensive heart and chronic kidney disease with heart failure and with stage 5 chronic kidney disease, or end stage renal disease; N18.6 End stage renal disease; B20 Human immunodeficiency virus [HIV] disease; I50.9 Heart failure, unspecified; I25.5 Ischemic cardiomyopathy; Z99.2 Dependence on renal dialysis; F12.90 Cannabis use, unspecified, uncomplicated; I25.10 Atherosclerotic heart disease of native coronary artery without angina pectoris; F41.9 Anxiety disorder, unspecified; E78.00 Pure hypercholesterolemia, unspecified; E21.3 Hyperparathyroidism, unspecified; E03.9 Hypothyroidism, unspecified; Z95.5 Presence of coronary angioplasty implant and graft; Z90.49 Acquired absence of other specified parts of digestive tract